=== PATIENT | male | born 1995 | race Native Hawaiian/Other Pacific Islander ===

== ENCOUNTER 2018-08-25 14:20 | Emergency (ER) | payer SELFPAY ==
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
[2018-08-25 15:52] VITALS: BP 144/88; PULSE 98; RESP 18; TEMP 98.2; O2SAT 98
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
== END 2018-08-25 15:53 | disposition home or self-care (01) ==
LOC: C.ER 14:20
DX: S80.02XA Contusion of left knee, initial encounter (principal); S60.211A Contusion of right wrist, initial encounter; V89.2XXA Person injured in unspecified motor-vehicle accident, traffic, initial encounter; Y92.410 Unspecified street and highway as the place of occurrence of the external cause; M25.562 Pain in left knee; M25.531 Pain in right wrist